=== PATIENT | female | born 1975 | race Caucasian/White ===

== ENCOUNTER 2022-06-24 04:33 | Day surgery (SDC) | payer BC ==
[2022-06-21 15:26] VITALS: BMI 22.4
[2022-06-24 10:55] VITALS: TEMP 97
[2022-06-24 11:27] VITALS: PULSE 52
[2022-06-24 11:32] VITALS: BP 108/59; RESP 17
== END 2022-06-24 11:42 | disposition home or self-care (01) ==
LOC: JASU-ENDO 04:33
PROVIDERS: ATTEND Internal Medicine Gastroenterology
PROC: 06LY8CC Occlusion of Hemorrhoidal Plexus with Extraluminal Device, Via Natural or Artificial Opening Endoscopic (ICD-10-PCS; principal; 2022-06-24 09:45)
DX: K62.5 Hemorrhage of anus and rectum (principal); K64.8 Other hemorrhoids
CPT/HCPCS: 81025

== ENCOUNTER 2024-10-04 09:59 | Emergency (ER) | payer BC ==
[2024-10-04 10:22] VITALS: BP 157/78; PULSE 73; RESP 16; TEMP 97.9; BMI 23.3
[2024-10-04 11:49] LABS: EOS % 2.5 % (0-4.5); HEMATOCRIT 38.6 % (32.4-45.2); HEMOGLOBIN 13.4 GM/dL (10.7-15.3); LYMPH % 14.1 % (8-40); MCH 31.3 pg (25.7-33.7); MCHC 34.7 g/dl (32.0-36.0); MEAN CELL VOLUME 90.2 fl (80-96); MEAN PLT VOLUME 8.6 fl (7.5-11.1); NEUT % 76.4 % (42.8-82.8); PLATELET COUNT 189 10^3/uL (134-434); RBC 4.28 M/mm3 (3.60-5.2); WHITE BLOOD COUNT 7.2 K/mm3 (4.0-10.0)
== END 2024-10-04 12:48 | disposition home or self-care (01) ==
LOC: JER 09:59
DX: N93.9 Abnormal uterine and vaginal bleeding, unspecified (principal)
CPT/HCPCS: 36415; 84703; 85025; 86850; 86900; 86901; 99283-25